=== PATIENT | female | born 1950 | race Caucasian/White ===

== ENCOUNTER 2021-11-03 19:09 | Inpatient (IN) | payer MEDICARE, OTHER ==
[~2021-11-03] VITALS: Ht 160 cm; Wt 83.2 kg
[2021-11-03] MEDS ORDERED: ASPIRIN 325MG TAB PO ONE (19:30)
[2021-11-03] MEDS ORDERED: NITROGLYCERIN 0.4 MG SL TAB SL PRN ×2 (19:30→21:30)
[2021-11-03] MEDS ORDERED: NITROGLYCERIN 1GM OINT 1 INCH/1GM TD ONE (19:30)
[2021-11-03 19:38] LABS: BASOPHILS % (AUTO) 0.5 % (0.0-5.0); HEMATOCRIT 42.9 % (36-48); LYMPHOCYTES % (AUTO) 18.8 % (21.0-51.0); MEAN CORPUSCULAR HEMOGLOBIN 29.5 pg (27.0-33.0); MEAN CORPUSCULAR HGB CONC 33.8 g/dL (32.0-36.0); MEAN CORPUSCULAR VOLUME 87.2 fL (79-99); MONOCYTES % (AUTO) 5.7 % (3.0-13.0); NEUTROPHILS % (AUTO) 72.9 % (40.0-77.0); PLATELET COUNT (AUTO) 262 K/uL (130-400); RED BLOOD CELL COUNT(AUTO) 4.92 MIL/uL (4.00-5.50); RED CELL DISTRIBUTION WIDTH 14.1 % (11.0-15.5); WHITE BLOOD COUNT (AUTO) 12.6 K/uL (4.8-10.8)
[2021-11-03 19:58] LABS: B-TYPE NATRIURETIC PEPTIDE 165 pg/mL (0-100)
[2021-11-03] MEDS ORDERED: LABETALOL 20MG SYG IV ONE (20:00)
[2021-11-03 20:03] LABS: APPEARANCE,URINE Clear (CLEAR); BILIRUBIN,URINE Negative (NEGATIVE); COLOR,URINE Yellow (YELLOW); GLUCOSE, URINE (UA) 500 mg/dL (NEGATIVE); KETONES,URINE Negative (NEGATIVE); LEUKOCYTE ESTERASE ,URINE Trace (NEGATIVE); NITRATE,URINE Negative (NEGATIVE); OCCULT BLOOD,URINE Trace (NEGATIVE); PH,URINE 5.5 (5.0-8.0); PROTEIN,URINE 300 mg/dL (NEGATIVE)
[2021-11-03 20:08] LABS: CREATININE 0.8 mg/dL (0.5-1.5); POTASSIUM 3.7 mmol/L (3.5-5.1)
[2021-11-03 20:09] LABS: RBC,URINE 0-1 /HPF (0-1)
[2021-11-03 20:10] LABS: BACTERIA,URINE Few /HPF (None Seen); SQUAMOUS EPITHELIAL CELL,UR Few /HPF (0-2)
[2021-11-03 20:11] LABS: YEAST,URINE BUDDING Few /HPF (None Seen)
[2021-11-03 20:13] LABS: ALBUMIN 2.9 g/dL (3.5-5.0); BILIRUBIN,TOTAL 0.8 mg/dL (0.2-1.0); TOTAL PROTEIN, SERUM 7.2 g/dL (6.0-8.3)
[2021-11-03] MEDS ORDERED: CEFTRIAXONE 1G VIAL IVP ONE (20:30)
[2021-11-03] MEDS ORDERED: DILTIAZEM 50MG VIAL IV ONE (20:48)
[2021-11-03] MEDS ORDERED: DILTIAZEM 25MG INJ IVP SCH (21:00)
[2021-11-03] MEDS ORDERED: 0.9%NACL 1000ML 1,000 ML IV SCH (21:30)
[2021-11-03] MEDS ORDERED: ONDANSETRON 4MG INJ IV PRN (21:30)
[2021-11-03] MEDS ORDERED: METOPROLOL TARTRATE 25 MG TAB PO SCH (21:30)
[2021-11-03] MEDS ORDERED: ACETAMINOPHEN 325 MG TAB PO PRN ×2 (21:30)
[2021-11-03 21:36] LABS: INR 1.01 (0.85-1.15)
[2021-11-03 21:38] LABS: PARTIAL THROMBOPLASTIN TIME 23.6 SEC (26.3-35.5)
[2021-11-03] MEDS ORDERED: METOPROLOL TARTRATE 50 MG TAB ONE (21:43)
[2021-11-03 21:46] LABS: HEMOGLOBIN A1C 10.7 % (4.0-6.0)
[2021-11-03] MEDS: 0.9%NACL 1000ML 1,000 ML IV SCH (21:50)
[2021-11-03 21:51] LABS: MAGNESIUM 1.9 mg/dL (1.80-2.40); THYROID STIMULATING HORMONE 0.27 uIU/mL (0.36-3.74)
[2021-11-03 21:56] LABS: AMPHET/METH SCREEN,URINE NEGATIVE (NEGATIVE); BARBITURATE SCREEN, URINE NEGATIVE (NEGATIVE); BENZODIAZEPINES SCREEN,URINE NEGATIVE (NEGATIVE); CANNABINOID SCREEN,URINE POSITIVE (NEGATIVE); COCAINE SCREEN,URINE NEGATIVE (NEGATIVE); OPIATE SCREEN,URINE NEGATIVE (NEGATIVE); PHENCYCLIDINE SCREEN,URINE NEGATIVE (NEGATIVE)
[2021-11-03] MEDS ORDERED: DILTIAZEM 125 MG/25 ML INJ 125 MG in 0.9%NACL 100ML 100 ML IV PRN (22:00)
[2021-11-03] MEDS ORDERED: FURO40TA5 PO (22:07)
[2021-11-03] MEDS ORDERED: APIX5TAB PO (22:07)
[2021-11-03] MEDS ORDERED: DULO30CA52 PO (22:07)
[2021-11-03] MEDS ORDERED: DAPA10TA PO (22:07)
[2021-11-03] MEDS ORDERED: ATOR40TA71 PO (22:07)
[2021-11-03] MEDS ORDERED: DILT240C97 PO (22:07)
[2021-11-03] MEDS ORDERED: PANT40TA54 PO (22:07)
[2021-11-03] MEDS ORDERED: LEVO100T12 PO (22:07)
[2021-11-03] MEDS ORDERED: LINA5TAB PO (22:07)
[2021-11-03] MEDS ORDERED: LISI2.5T13 PO (22:07)
[2021-11-03] MEDS ORDERED: METO50TA18 PO (22:07)
[2021-11-03] MEDS ORDERED: CARV12.511 PO (22:07)
[2021-11-03] MEDS ORDERED: ALEN70TA80 PO (22:07)
[2021-11-03] MEDS: ATORVASTATIN 40 MG TABLET PO SCH (23:39)
[2021-11-04 06:39] LABS: BASOPHILS % (AUTO) 0.5 % (0.0-5.0); EOSINOPHILS % (AUTO) 1.7 % (0.0-8.0); HEMATOCRIT 39.8 % (36-48); LYMPHOCYTES % (AUTO) 22.4 % (21.0-51.0); MEAN CORPUSCULAR HEMOGLOBIN 28.4 pg (27.0-33.0); MEAN CORPUSCULAR HGB CONC 33.7 g/dL (32.0-36.0); MEAN CORPUSCULAR VOLUME 84.3 fL (79-99); MONOCYTES % (AUTO) 6.7 % (3.0-13.0); NEUTROPHILS % (AUTO) 67.8 % (40.0-77.0); PLATELET COUNT (AUTO) 244 K/uL (130-400); RED BLOOD CELL COUNT(AUTO) 4.72 MIL/uL (4.00-5.50); RED CELL DISTRIBUTION WIDTH 14.1 % (11.0-15.5); WHITE BLOOD COUNT (AUTO) 11.5 K/uL (4.8-10.8)
[2021-11-04 07:03] LABS: ALBUMIN 2.7 g/dL (3.5-5.0); BILIRUBIN,TOTAL 0.9 mg/dL (0.2-1.0); CREATININE 0.8 mg/dL (0.5-1.5); MAGNESIUM 1.7 mg/dL (1.80-2.40); POTASSIUM 3.6 mmol/L (3.5-5.1); TOTAL PROTEIN, SERUM 6.6 g/dL (6.0-8.3)
[2021-11-04] MEDS ORDERED: ATORVASTATIN 40 MG TABLET PO SCH (09:00)
[2021-11-04] MEDS ORDERED: ENOXAPARIN SODIUM 40 MG/0.4 ML SYRINGE SQ SCH (09:00)
[2021-11-04] MEDS: LEVOTHYROXINE 100 MCG TABLET PO SCH (09:00)
[2021-11-04] MEDS: METOPROLOL TARTRATE 50 MG TAB PO SCH ×2 (09:20→21:42)
[2021-11-04] MEDS: 0.9%NACL 1000ML 1,000 ML IV SCH (09:22)
[2021-11-04] MEDS: LISINOPRIL 2.5 MG TABLET PO SCH (09:33)
[2021-11-04] MEDS: ASPIRIN 81 MG EC TAB PO SCH (09:33)
[2021-11-04] MEDS: APIXABAN 5 MG TABLET PO SCH ×2 (09:33→21:42)
[2021-11-04] MEDS: ATORVASTATIN 40 MG TABLET PO SCH (09:33)
[2021-11-04] MEDS: LINAGLIPTIN 5 MG TABLET PO SCH (09:33)
[2021-11-04] MEDS: DULOXETINE HCL 30 MG CAP PO SCH (09:33)
[2021-11-04] MEDS: FAMOTIDINE 20MG TAB PO SCH ×2 (09:33→21:42)
[2021-11-04] MEDS: FUROSEMIDE 40 MG TABLET PO SCH (09:33)
[2021-11-04] MEDS: ***HM*** (Dapagliflozin Propanediol (Farxiga) 10 MG) PO SCH (09:37)
[2021-11-04] MEDS ORDERED: MAGNESIUM 2GM PREMIX 50ML 50 ML IV SCH (17:00)
[2021-11-04] MEDS ORDERED: 0.9%NACL 50ML 50 ML IV ONE (21:34)
[2021-11-04] MEDS: CEFTRIAXONE 1G VIAL IV SCH (21:42)
[2021-11-04] MEDS: DILTIAZEM 120MG SR CAP PO SCH (21:42)
[2021-11-05] MEDS: LINAGLIPTIN 5 MG TABLET PO SCH (09:00)
[2021-11-05] MEDS: ASPIRIN 81 MG EC TAB PO SCH (09:00)
[2021-11-05] MEDS: FUROSEMIDE 40 MG TABLET PO SCH (09:00)
[2021-11-05] MEDS: LISINOPRIL 2.5 MG TABLET PO SCH (09:00)
[2021-11-05] MEDS: LEVOTHYROXINE 100 MCG TABLET PO SCH (09:00)
[2021-11-05] MEDS: DULOXETINE HCL 30 MG CAP PO SCH (09:00)
[2021-11-05] MEDS: ATORVASTATIN 40 MG TABLET PO SCH (09:00)
[2021-11-05] MEDS: APIXABAN 5 MG TABLET PO SCH ×2 (09:00→20:59)
[2021-11-05] MEDS: FAMOTIDINE 20MG TAB PO SCH ×2 (09:00→20:59)
[2021-11-05] MEDS: METOPROLOL TARTRATE 50 MG TAB PO SCH ×2 (09:00→20:58)
[2021-11-05 11:20] VITALS: BP 148/87
[2021-11-05 15:29] VITALS: BP 153/72
[2021-11-05 19:45] VITALS: BP 138/81
[2021-11-05] MEDS: CEFTRIAXONE 1G VIAL IV SCH (20:57)
[2021-11-05] MEDS: DILTIAZEM 120MG SR CAP PO SCH (20:58)
[2021-11-05] MEDS: CARVEDILOL 12.5 MG TABLET PO SCH (20:58)
[2021-11-05] MEDS ORDERED: ISOSORBIDE MONO 30MG SR TAB PO SCH (21:00)
[2021-11-05] MEDS: 0.9%NACL 1000ML 1,000 ML IV SCH (23:30)
[2021-11-06 00:12] VITALS: BP 111/74
[2021-11-06 05:44] VITALS: BP 124/73
[2021-11-06 08:00] VITALS: BP 134/81
[2021-11-06] MEDS: ASPIRIN 81 MG EC TAB PO SCH (08:39)
[2021-11-06] MEDS: DULOXETINE HCL 30 MG CAP PO SCH (08:40)
[2021-11-06] MEDS: METOPROLOL TARTRATE 50 MG TAB PO SCH (08:40)
[2021-11-06] MEDS: LEVOTHYROXINE 100 MCG TABLET PO SCH (08:40)
[2021-11-06] MEDS: FAMOTIDINE 20MG TAB PO SCH (08:40)
[2021-11-06] MEDS: ATORVASTATIN 40 MG TABLET PO SCH (08:40)
[2021-11-06] MEDS: APIXABAN 5 MG TABLET PO SCH (08:40)
[2021-11-06] MEDS: CARVEDILOL 12.5 MG TABLET PO SCH (08:40)
[2021-11-06] MEDS: LINAGLIPTIN 5 MG TABLET PO SCH (08:40)
[2021-11-06] MEDS: FUROSEMIDE 40 MG TABLET PO SCH (08:41)
[2021-11-06] MEDS: ***HM*** (Dapagliflozin Propanediol (Farxiga) 10 MG) PO SCH (08:41)
[2021-11-06] MEDS: LISINOPRIL 2.5 MG TABLET PO SCH (08:41)
[2021-11-06] MEDS: 0.9%NACL 1000ML 1,000 ML IV SCH (09:30)
[2021-11-06 09:34] LABS: HEMATOCRIT 41.5 % (36-48); MEAN CORPUSCULAR HEMOGLOBIN 28.7 pg (27.0-33.0); PLATELET COUNT (AUTO) 232 K/uL (130-400); RED BLOOD CELL COUNT(AUTO) 4.77 MIL/uL (4.00-5.50); RED CELL DISTRIBUTION WIDTH 14.4 % (11.0-15.5); WHITE BLOOD COUNT (AUTO) 10.4 K/uL (4.8-10.8)
[2021-11-06 09:40] LABS: MAGNESIUM 1.8 mg/dL (1.80-2.40); POTASSIUM 3.8 mmol/L (3.5-5.1)
[2021-11-06 10:11] LABS: EOSINOPHILS % (MANUAL) 1 % (1-6); LYMPHOCYTES % (MANUAL) 24 % (22-44); MAN.DIFF COMMENT-IMPRESSION MANUAL DIFFERENTIAL; MONOCYTES % (MANUAL) 2 % (2-9); SEGMENTED NEUTROPHILS % 73 % (40-70)
[2021-11-06 10:12] LABS: PLATELET MORPHOLOGY COMMENT ADEQUATE
[2021-11-06 11:14] VITALS: BP 114/55
[2021-11-06] MEDS ORDERED: METO50 PO (12:17)
[2021-11-10] MEDS ORDERED: ALENDRONATE SODIUM 35 MG TAB PO SCH (09:00)
== END 2021-11-06 16:00 | disposition home or self-care (01) | DRG 872 ==
LOC: EDH 19:09 → EDHIP 21:08 → 3CH 11-05 10:33
PROVIDERS: ADMIT Internal Medicine; ATTEND Internal Medicine
DX: A41.9 Sepsis, unspecified organism (principal); N39.0 Urinary tract infection, site not specified; I48.19 Other persistent atrial fibrillation; E03.9 Hypothyroidism, unspecified; E11.65 Type 2 diabetes mellitus with hyperglycemia; E66.9 Obesity, unspecified; I49.3 Ventricular premature depolarization; I25.10 Atherosclerotic heart disease of native coronary artery without angina pectoris; E78.5 Hyperlipidemia, unspecified; I10 Essential (primary) hypertension; Z20.822 Contact with and (suspected) exposure to COVID-19; E78.00 Pure hypercholesterolemia, unspecified; Z68.35 Body mass index [BMI] 35.0-35.9, adult; Z87.891 Personal history of nicotine dependence; Z98.84 Bariatric surgery status; Z90.710 Acquired absence of both cervix and uterus; Z79.01 Long term (current) use of anticoagulants; Z79.84 Long term (current) use of oral hypoglycemic drugs; Z79.899 Other long term (current) drug therapy; Z86.73 Personal history of transient ischemic attack (TIA), and cerebral infarction without residual deficits; Z84.89 Family history of other specified conditions; Z82.49 Family history of ischemic heart disease and other diseases of the circulatory system
CPT/HCPCS: 36415; 71045; 80048; 80053; 80061; 80305; 81001; 82550; 82948; 83036; 83605; 83735; 83874; 83880; 84145; 84439; 84443; 84481; 84484; 85025; 85610; 85730; 87040; 87088; 87635; 93005; 93306; 93356; G0378; J0696; J3475; J7030